=== PATIENT | female | born 1960 | race Caucasian/White ===

== ENCOUNTER 2017-08-19 21:54 | Inpatient (IN) | payer OTHER ==
[~2017-08-19] VITALS: Ht 170.2 cm; Wt 81.6 kg
[2017-08-19] MEDS ORDERED: CLONIDINE HCL 0.1 MG TABLET PO PRN (22:30)
[2017-08-19] MEDS ORDERED: METHOCARBAMOL 750 MG TABLET PO PRN (22:30)
[2017-08-19] MEDS ORDERED: MIRALAX 17 GM POWD.PACK PO PRN (22:30)
[2017-08-19] MEDS ORDERED: IBUPROFEN 600 MG TABLET PO PRN (22:30)
[2017-08-19] MEDS ORDERED: LORAZEPAM 1 MG TABLET PO PRN ×2 (22:30)
[2017-08-19] MEDS ORDERED: MAGNESIUM HYDROXIDE 30 ML LIQUID UDC PO PRN (22:30)
[2017-08-19] MEDS ORDERED: LOPERAMIDE HCL 2 MG CAPSULE PO PRN ×2 (22:30)
[2017-08-19] MEDS ORDERED: MAG HYDROX/AL HYDROX/SIMETH 30 ML LIQUID UDC PO PRN (22:30)
[2017-08-19] MEDS ORDERED: ONDANSETRON ODT 4 MG TAB.RAPDIS SL PRN (22:30)
[2017-08-19] MEDS ORDERED: ONDANSETRON 4 MG/2 ML VIAL IM PRN (22:30)
[2017-08-19] MEDS ORDERED: BUPRENORPHINE HCL 2 MG TAB.SUBL SL PRN (22:30)
[2017-08-19] MEDS ORDERED: ACETAMINOPHEN 325 MG TABLET PO PRN (22:30)
[2017-08-19] MEDS ORDERED: LORAZEPAM 2 MG/1 ML VIAL IM PRN (22:30)
[2017-08-19] MEDS ORDERED: DICYCLOMINE HCL 20 MG TABLET PO PRN (22:30)
--- NOTE | 2017-08-19 22:45 | NUR ---
Intake Assessment Assessment done at intake office. Patient is on a wheelchair and noted with some mild weakness on both lower extremities. Patient is alert & oriented to name, time, place & situation. 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 Patient able to stand on her own but needs little assistance when walking. Patient reported using a cane at home. Speech is clear and audible. Pt appears moderately anxious and noted with agitation. Vitals noted B/P 144/66, WY 67, RR 16, Temp 96.4, O2Sat 95%. Patient stated that she does not want to be admitted but despite verbalization of not wanting to be here patient still signed consents. Pt is here for Opiate dependence. No seizure history noted. Pt reported no known food and drug allergies. Pt brought home medications. Explained to patient policy regarding destruction of any controlled substance/prescription brought to facility and handling of all medications. Pt verbalized understanding.
[2017-08-19 23:00] VITALS: BP 144/66
[2017-08-19] MEDS ORDERED: LORAZEPAM 1 MG TABLET PO ONE (23:50)
--- NOTE | 2017-08-20 01:00 | NUR ---
ADMISSION NOTE: Patient is a 56 y.o female admitted at [facility] Unit at approximately 2255 pm of 08/19/17 for medically supervised withdrawal Hydrocodone & Oxycodone. Body search done and skin check done, no contraband found. Skin noted to be intact. Pt is 5'7" tall and weighs 180 lbs in a standing scale. Patient is oriented to floor unit and room. Patient follows a regular diet at home with no known food and drug allergies. Pt wishes to be full Code. Patient is alert & oriented to name, place, time and situation. Patient noted with some mild weakness on both lower extremities and ambulates on a wheelchair. 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 Patient able to stand on her own but needs assistance when walking. Patient reported using a cane at home. Speech is clear and audible. Patient appears anxious and agitated. Patient is noted to be very emotional. No shortness of breath noted. Respiration even & unlabored. Abdomen soft & non-distended. Bowel sounds active in all four quadrants. No nausea/vomiting noted. Patient denies pain or discomfort. No headache noted. No hand tremors noted. Patient denies any hallucinations. COWS is 5. Patient noted with past medical history of Anxiety, Depression, Multiple Sclerosis, Hepatitis C. Pt denies any suicide attempts in the past. Pt currently denies SI/HI. Pt was not able to provide urine sample for drug screen upon admission. Substance use: 1. Hydrocodone- Pt reported taking Gaffney in an unknown amount. Pt last took in the morning prior to admission 08/19/17 in an unknown amount. Pt stated that she started using it a couple months ago. Unable to recall exact date. 2. Percocet- Pt reported taking Percocet in an unknown amount. Pt last took in the morning prior to admission 08/19/17 in an unknown amount. Pt stated that she started using it a couple months ago. Unable to recall exact date. Patient reported that this is her first time in treatment. Patient denies being hospitalized in the last 30 days. Patients PCP is Dr. Acharya in [place]. Pt stated that she has used IV drugs before in the past when she was in her 20s but has been sober for 27 years and just started doing drugs again this past couple of months. Pt stated that she does not want to be admitted but was just tricked into getting to detox treatment. Patient reported that her daughter tricked her into getting into a plane and thought that she was going to visit her friend in [place] for a vacation. Patient reported that she does not usually get withdrawal symptoms but mostly anxiety and agitation. Patient smokes less than 10 cigarettes daily. Patient refused flu & pneumonia vaccines, educated patient risk & benefits but still refused. Fall & Seizure precautions are in place. All needs attended & met. Safety precautions are in place. Bed locked in lowest position. Both side rails up. Call light within pt's reach. Patient placed on a 1:1 sitter for safety. Pt educated regarding use of the call light and all questions answered. Fall precautions ordered. Bed is down with call light in reach. Addendum: 08/20/17 at 0618 by ARAM BERMUDEZ RN Patient also reports that she is taking Valium 20mg before bedtime together with the Seroquel for sleep. Patient has been taking Valium for 6 months now.
--- NOTE | 2017-08-20 01:30 | NUR ---
Administration Note: Pt stated that she did not want to get admitted and was only tricked into being here. Pt wanted to call her friend Vero to pick her up, Administration and MD was notified and approved call. Tried calling her friend Vero but was not answering. Per Administration they will be here early in in AM to address patient's situation. Pt agreed to stay for the night.
[2017-08-20] MEDS: diphenhydrAMINE 50 MG CAPSULE PO PRN (01:58)
--- NOTE | 2017-08-20 01:58 | NUR ---
PRN Benadryl Patient received PRN Benadryl to help her sleep. Will continue to monitor patient.
[2017-08-20] MEDS ORDERED: diphenhydrAMINE 50 MG CAPSULE ONE (02:11)
[2017-08-20] MEDS ORDERED: IBUP1TAB71 PO (02:39)
[2017-08-20] MEDS ORDERED: HYDR-500 PO (02:39)
[2017-08-20] MEDS ORDERED: DULO30CA2 PO (02:39)
[2017-08-20] MEDS ORDERED: DULO60CA45 PO ×2 (02:39)
[2017-08-20] MEDS ORDERED: DIAZ5TAB PO (02:39)
[2017-08-20] MEDS ORDERED: QUET200T PO (02:39)
--- NOTE | 2017-08-20 02:58 | NUR ---
PRN Reassessment Patient asleep in bed and appears comfortable. No s/s of distress noted. Respiration even & unlabored. 1:1 sitter at bedside. Will continue to monitor patient.
--- NOTE | 2017-08-20 06:00 | NUR ---
Pt was able to provide Urine for drug screen. Pt was able to void clear yellow urine freely without problems.
[2017-08-20 07:06] LABS: BASOPHILS % (AUTO) 0.8 % (0.0-2.0); EOSINOPHILS # (AUTO) 0.1 K/uL (0.0-0.7); EOSINOPHILS % (AUTO) 2.7 % (0.0-7.0); HEMATOCRIT 48.6 % (37-47); HEMOGLOBIN 15.6 G/DL (12.0-16.0); LYMPHOCYTES # (AUTO) 1.5 K/UL (0.8-4.8); LYMPHOCYTES % (AUTO) 40.6 % (20.5-51.5); MEAN CORPUSCULAR HGB CONC 32 g/dL (32.0-37.0); MEAN CORPUSCULAR VOLUME 80.7 FL (81.0-99.0); MONOCYTES # (AUTO) 0.4 K/UL (0.1-1.30); MONOCYTES % (AUTO) 9.4 % (0.0-11.0); NEUTROPHILS # (AUTO) 1.8 K/UL (1.8-8.9); NEUTROPHILS % (AUTO) 46.5 % (38.5-71.5); PLATELET COUNT (AUTO) 186 K/UL (150-450); RED BLOOD CELL COUNT(AUTO) 6.02 MIL/UL (4.2-5.4); WHITE BLOOD COUNT (AUTO) 3.8 K/UL (4.0-11.2)
--- NOTE | 2017-08-20 07:10 | NUR ---
End of Shift Note: Patient is a 56 y/o female admitted last night 08/19/17 @ 2255 for Opiate & Benzo dependence. Patient reported dependence on Hydrocodone, Percocet & Valium. Patient has PMHx of Anxiety, Depression, Multiple Sclerosis & hepatitis C. Pt is completely blind on her left eye but has some vision on her right eye. Patient is legally blind. Patient able to stand on her own but needs assistance when walking. Patient reported using a cane at home. Patient is alert & oriented x4. Patient has a 1:1 sitter for safety. Patient remains stable and vitals remains WNL. Pt slept for a total of 3 hours. Pt consumed 1296ml of fluids. Voided 1x with no bowel movement. All needs attended & met. Safety measures in place. Will endorse pt to day shift nurse.
[2017-08-20 07:15] LABS: ALANINE AMINOTRANSFERASE 19 U/L (14-59); ALKALINE PHOSPHATASE 89 U/L (50-136); ASPARTATE AMINOTRANSFERASE 21 U/L (15-37); BILIRUBIN,TOTAL 0.6 mg/dL (0.2-1.0); CARBON DIOXIDE 29 mmol/L (21-32); CHLORIDE 108 mmol/L (98-107); CREATININE 0.8 mg/dL (0.6-1.3); GLUCOSE 93 mg/dL (74-106); MAGNESIUM 2.2 mg/dL (1.8-2.4); TOTAL PROTEIN, SERUM 7.6 g/dL (6.4-8.2); UREA NITROGEN, BLOOD 10 mg/dL (7-18)
[2017-08-20 07:17] LABS: ETHANOL < 3 MG/DL (0-0)
[2017-08-20 07:18] LABS: *URINE HCG, QUAL NEGATIVE (NEGATIVE)
--- NOTE | 2017-08-20 07:40 | NUR ---
BEGINNING OF SHIFT Patient endorsement report received from warehouse shift supervisor nurse, all pertinent information discussed. Patient is a 56 year old female admitted on: 08/19/2017 with admitting Dx: opiate/BZO dependence. Patient currently under close observation, no ongoing taper. Per warehouse shift supervisor patient slept for 3 hours, received no PRN medications. Patient with last cow score of: 5 Patient received awake, alert and oriented x4, patient educated regarding plan of care and medication regimen for the day with good verbal understanding. Patient continues on 1:1 safety precautions, d/t patient legally blind. Safety measure sin place. call light kept with in reach, will continue to monitor.
[2017-08-20 08:43] LABS: *AMPHETAMINE, URINE NEGATIVE (NEGATIVE); *BARBITURATE, URINE NEGATIVE (NEGATIVE); *CANNABINOID, URINE NEGATIVE (NEGATIVE); *COCCAINE, URINE NEGATIVE (NEGATIVE); *OPIATE, URINE POSITIVE (NEGATIVE); *PHENCYCLIDINE SCREEN,URINE NEGATIVE (NEGATIVE)
[2017-08-20] MEDS ORDERED: TUBERCULIN,PURIF.PROT.DERIV. 5 TU/0.1 ML TEST ID ONE (09:00)
--- NOTE | 2017-08-20 09:30 | NUR ---
REFUSED PPD Patient refused PPD, risk vs benefits explained with good verbal understanding. patient refused. MD is aware.
[2017-08-20 09:41] VITALS: BP 150/90
--- NOTE | 2017-08-20 10:00 | NUR ---
Activity Group Note: Attempt made for group participation. Client refused. Will attempt when time permits.
[2017-08-20] MEDS: HYDROXYZINE PAMOATE 25 MG CAPSULE PO PRN (11:27)
--- NOTE | 2017-08-20 11:27 | NUR ---
PRN VISTARIL Patient c/o increase anxiety, provided with non pharmacological interventions with no relief, administered Vistaril 25mg PO as ordered, will monitor effectiveness of medication.
--- NOTE | 2017-08-20 12:27 | NUR ---
VISTARIL REASSESSMENT Patient reports medication somewhat effective, encouraged patient to express self, and to attend group therapies/sessions to learn new coping skill to prevent relapse, will continue to monitor.
--- NOTE | 2017-08-20 13:45 | NUR ---
Activity Group Note: Attempt made for group participation. Client refused. Will attempt again when time permits.
[2017-08-20 14:52] VITALS: BP 150/92
--- NOTE | 2017-08-20 15:33 | NUR ---
PRN ATIVAN Patient presented with: difficulty sitting still and increase in anxiety, patient provided with non pharmacological interventions with no relief, patient with current ciwa score of: 7, Administered Ativan 1 mg PO as ordered by Dr. rae, will monitor effectiveness of medication.
--- NOTE | 2017-08-20 16:05 | NUR ---
PSYCHIATRIST COMMUNICATION Notified Dr. Cleveland patient requesting to take her home medication Cymbalta, as per MD patient may take one time dose, until he comes to see her this evening. Dr. Cleveland unable to input order, read back and verified order: Cymbalta 30mg PO one time. noted and carried out.
[2017-08-20] MEDS ORDERED: DULOXETINE 30 MG CAPSULE.DR PO ONE (16:15)
--- NOTE | 2017-08-20 16:33 | NUR ---
ATIVAN REASSESSMENT Medication effective, patient with decrease in anxiety, reports feeling "better" ciwa score decreased to: 2. will continua to monitor, safety measures in place.
[2017-08-20 17:09] VITALS: BP 145/73
--- NOTE | 2017-08-20 19:03 | NUR ---
BEGINNING OF SHIFT Patient alert and oriented x4, vital signs were stable during shift. Patients continues under close observation. during shift patient refused PPD administration, risk vs benefits were explained with good verbal understanding. patient with admitting Dx: opiate/BZO dependence. currently with no ongoing taper, continues under close observation. 0900 presented with: dilated pupils, mild bone and joint aches, irritable, anxiety, and mild agitation with cow score of: 4 and ciwas score of: 5; 1300 assessment patient presented with: c/o chills, difficulty sitting still, and increase in anxiety with cow score of: 7 and ciwa score of: 7; 1700 assessment patient presented with: mild anxiety, and mild agitation with cow score of: 4 and ciwa score of: 2. Patient continues with 1:1 sitter for safety precautions. During shift patient was administered Vistaril and Ativan 1 mg Po as ordered, medications were effective one hour post administration. Patient encouraged adequate PO fluid intake as tolerated. Patient encouraged to attend group therapies/sessions to learn new coping skills to prevent relapse. Denies SI/HI. safety measures in place. call light kept with in reach, patient endorsed to seeing eye dog trainer nurse, all pertinent information discussed. will continue to monitor.
--- NOTE | 2017-08-20 19:30 | NUR ---
Start of Shift Patient is a 56 year old female admitted on 08-19-17 for Benzo and opiate dependence. Patient is on observation for withdrawal symptoms with PRN medication in place for withdrawal. Patients last CIWA 7 at 1600 per AM nurse. Patient with PMH of Anxiety, depression, MS, Legal blindness, and Hepatitis C. She is on 1:1 for safety. She is a full code, on a regular diet and has NKA. She is on fall and seizure precautions. At change of shift patient alert and oriented x 3 in bed, stating she feels "ok" she just wants to sleep and go home. Patient denies any withdrawal symptoms at present time. Safety measures in place. Call light within reach, side rails upx 2 bed locked and in lowest position. Report received from AM nurse.
[2017-08-20 20:00] VITALS: BP 138/65
[2017-08-20] MEDS: DULOXETINE 30 MG CAPSULE.DR PO SCH (20:57)
[2017-08-20] MEDS: QUETIAPINE FUMARATE 200 MG TABLET PO SCH (20:57)
--- NOTE | 2017-08-21 00:10 | NUR ---
Vital signs refused/CIWA COWS deferred Patient refused Vital signs at 0000. COWS/CIWA deferred for sleep
--- NOTE | 2017-08-21 04:00 | NUR ---
Vital signs refused/CIWA COWS deferred Patient refused Vital signs at 0400. COWS/CIWA deferred for sleep
[2017-08-21 05:45] VITALS: BP 123/74
[2017-08-21] MEDS: HYDROXYZINE PAMOATE 25 MG CAPSULE PO PRN ×3 (05:48→21:01)
--- NOTE | 2017-08-21 05:48 | NUR ---
PRN MEDICATION Patient with anxiety 4 out of 10. Vistaril 25 mg PO PRN givenat 48. Effect pending.
--- NOTE | 2017-08-21 06:48 | NUR ---
Reassessment of patient Patient reassessed one hour after PRN vistaril 25 mg PO given for anxiety. Patient reports effectiveness.
--- NOTE | 2017-08-21 07:01 | NUR ---
End of Shift Note Patient is a 56 year old female admitted on 08-19-17 for Benzodiazepine and opiate dependence. Patient is on observation for withdrawal symptoms with PRN medication in place for withdrawal. Patient with PMH of Anxiety, depression, MS, Legal blindness, and Hepatitis C. She is on 1:1 for safety. She is a full code, on a regular diet and has NKA. She is on fall and seizure precautions. Patient denies any withdrawal symptoms. VS at 1999 BP 138/65, P 76, R 16, SPO2 98% on RA, T 98.4. COWS 1, CIWA 2. Patient stating she just wants to sleep and not to wake her up for vital signs. . Patient woke up at 0545 requesting a "sleeping pill" Discussed time of morning and patient assessed as having anxiety regarding being here. Vital signs assessed BP 123/74, P83, R 16, SPO2 94% on RA, T 98.1 CIWA 2 COWS 2. Vistaril 25 mg PO given for symptoms of anxiety. Effectiveness noted. Patient slept a total of 9 hours. Intake 500 ml Output 1 void . Safety measures in place. Call light within reach, side rails up x 2 bed locked and in lowest position. Report given to AM nurse.
--- NOTE | 2017-08-21 07:33 | NUR ---
BEGINNING OF SHIFT Patient endorsement report received from shift production associate nurse, all pertinent information discussed. Patient is a 56 year old female admitted on: 08/19/2017 with admitting Dx: opiate/BZO dependence. Patient currently under close observation, no ongoing taper. Per shift production associate patient slept for 9 hours, received PRN: Vistaril as ordered, medication effective one hour post administration. Patient with last cow score of: 2, and last ciwa score of: 2. Patient received awake, alert and oriented x4, patient educated regarding plan of care and medication regimen for the day with good verbal understanding. Patient continues on 1:1 safety precautions, d/t patient legally blind. Safety measure sin place. call light kept with in reach, will continue to monitor.
[2017-08-21 08:10] LABS: HEPATITIS B SURFACE AG Negative (Negative)
[2017-08-21 09:16] VITALS: BP 138/79
[2017-08-21] MEDS: DULOXETINE 60 MG CAPSULE.DR PO SCH (09:16)
--- NOTE | 2017-08-21 12:22 | NUR ---
PRN VISTARIL Patient c/o increase anxiety, provided with non pharmacological interventions with no relief, administered Vistaril 25mg PO as ordered, will monitor effectiveness of medication.
[2017-08-21 13:00] VITALS: BP 149/81
--- NOTE | 2017-08-21 14:10 | NUR ---
Therapist prompted client to attend groups. Client refused to attend.
[2017-08-21 16:53] VITALS: BP 142/83
[2017-08-21] MEDS ORDERED: METH-406 PO (16:53)
[2017-08-21] MEDS ORDERED: IBUP-1955 PO (16:53)
[2017-08-21] MEDS ORDERED: DULO60CA45 PO (16:53)
[2017-08-21] MEDS ORDERED: HYDR-3895 PO (16:53)
[2017-08-21] MEDS ORDERED: DIPH50CA37 PO (16:53)
[2017-08-21] MEDS ORDERED: DICY20TA28 PO (16:53)
--- NOTE | 2017-08-21 18:52 | NUR ---
END OF SHIFT Patient alert and oriented x4, vital signs were stable during shift. Patients continues under close observation. patient with admitting Dx: opiate/BZO dependence. currently with no ongoing taper, continues under close observation. Patient is scheduled to be discharged tomorrow morning, noted self motivated towards sobriety. 0900 presented with: Heart rate of 88, nasal stuffiness, irritable, and anxiety with cow score of: 4 and ciwa score of: 4; 1300 assessment patient presented with: heart rate of 91, nasal stuffiness, irritable and anxiety with cow score of: 4 and ciwa score of: 4; 1700 assessment patient presented with: heart rate of 98; nasal stuffiness, and mild anxiety with cow score of: 3 and ciwa score of: 1. Patient continues with 1:1 sitter for safety precautions. During shift patient was administered Vistaril as ordered, medications were effective one hour post administration. Patient encouraged adequate PO fluid intake as tolerated. Patient encouraged to attend group therapies/sessions to learn new coping skills to prevent relapse. Denies SI/HI. safety measures in place. call light kept with in reach, patient endorsed to security shift manager nurse, all pertinent information discussed. will continue to monitor.
[2017-08-21 20:00] VITALS: BP 147/85
[2017-08-21] MEDS: diphenhydrAMINE 50 MG CAPSULE PO PRN (21:00)
[2017-08-21] MEDS: QUETIAPINE FUMARATE 200 MG TABLET PO SCH (21:00)
[2017-08-21] MEDS: DULOXETINE 30 MG CAPSULE.DR PO SCH (21:00)
[2017-08-22] MEDS: DULOXETINE 60 MG CAPSULE.DR PO SCH (09:00)
[2017-08-22 09:22] VITALS: BP 127/73
--- NOTE | 2017-08-22 12:02 | NUR ---
0900 MEDICATION ADMINISTRATION all scheduled 0900 medications were administered as ordered, per [facility] downtime. refer to paper MAR record.
[2017-08-22 13:12] VITALS: BP 126/61
[2017-08-22] MEDS: HYDROXYZINE PAMOATE 25 MG CAPSULE PO PRN (15:26)
[2017-08-22 17:44] VITALS: BP 132/78
--- NOTE | 2017-08-22 19:18 | NUR ---
DISCHARGED Patient discharged off the unit, prior to discharge patient in stable condition, not in any apparent acute distress. Patient educated and provided with teaching regarding all discharge instructions, with good verbal understanding. Patient is scheduled to be dsicharged home. noted self motivated towards sobriety. patients vital signs were stable prior to discharge, no s/sx of withdrawal noted. patients home medications, discharge instrutions were placed in patients personal duffel bag. Patient off the unit at 1907
== END 2017-08-22 19:07 | disposition home or self-care (01) | DRG 895 ==
LOC: SRC 21:54
PROVIDERS: ADMIT Internal Medicine; ATTEND Internal Medicine
PROC: HZ2ZZZZ Detoxification Services for Substance Abuse Treatment (ICD-10-PCS; principal; 2017-08-19)
PROC: HZ31ZZZ Individual Counseling for Substance Abuse Treatment, Behavioral (ICD-10-PCS; 2017-08-21)
DX: F11.23 Opioid dependence with withdrawal (principal); F13.20 Sedative, hypnotic or anxiolytic dependence, uncomplicated; B19.20 Unspecified viral hepatitis C without hepatic coma; G35 Multiple sclerosis; F17.210 Nicotine dependence, cigarettes, uncomplicated; F32.9 Major depressive disorder, single episode, unspecified; F41.9 Anxiety disorder, unspecified; H54.40 Blindness, one eye, unspecified eye; Z99.3 Dependence on wheelchair
CPT/HCPCS: 36415; 80307; 80346; 80361; 83735; 84703; 85025; 86592; 86705; 86803; 87340; 87806; A4663; G0480; Q0163